=== PATIENT | male | born 1985 | race American Indian/Alaskan Native ===

== ENCOUNTER 2017-04-08 21:50 | Emergency (ER) | payer SELFPAY ==
[2017-04-08] MEDS ORDERED: NACL 0.9% 500 ML 500 ML IV ONE (23:10)
[2017-04-08] MEDS ORDERED: TYLENOL ONE (23:11)
[2017-04-08] MEDS ORDERED: TYLENOL PO ONE (23:11)
[2017-04-09 00:28] LABS: Basophils % (Auto) 0.7 % (0.0-1.8); Hemoglobin 15.4 gm/dl (11.8-15.2); Mean Corpuscular HGB Conc 33 % (32-34); Mean Corpuscular Hemoglobin 29 pg (28-32); Mean Corpuscular Volume 89 fl (84-94); Platelet Count 103 K/mm3 (140-440); Red Blood Count 5.27 M/mm3 (3.65-5.03); Red Cell Distribution Width 13.8 % (13.2-15.2); White Blood Count 3.7 K/mm3 (4.5-11.0)
[2017-04-09 00:40] LABS: INR 1.08 (0.87-1.13)
[2017-04-09 00:41] LABS: Alanine Aminotransferase 138 units/L (7-56); Albumin/Globulin Ratio 1.1 %; Alkaline Phosphatase 66 units/L (35-129); Blood Urea Nitrogen 9 mg/dL (9-20); Calcium 9.1 mg/dL (8.4-10.2); Carbon Dioxide 24 mmol/L (22-30); Chloride 97.8 mmol/L (98-107); Glucose 124 mg/dL (75-100); Potassium 3.6 mmol/L (3.6-5.0); Sodium 139 mmol/L (137-145); Total Protein 7.8 g/dL (6.3-8.2)
[2017-04-09 00:42] LABS: Anion Gap 21 mmol/L
[2017-04-09 01:11] LABS: Bilirubin,Urine NEG (Negative); Blood,Urine MOD (Negative); Ketones,Urine NEG (Negative); Leukocyte Esterase,Urine NEG (Negative); Mucus,Urine FEW /HPF; Nitrite,Urine NEG (Negative)
[2017-04-09] MEDS ORDERED: NACL 0.9% 500 ML 500 ML ONE (06:11)
[2017-04-09 06:52] VITALS: BP 138/90
--- NOTE | 2017-04-09 07:28 | Emergency Department Report ---
HPI - General Chief Complaint: Abdominal Pain Time Seen by Provider: 04/09/17 06:46 - HPI HPI: His is a 32 year-old male presents to the emergency department with complaint of intermittent fever and chills over the past 3 days. He tried some TheraFlu and [place] for his symptoms with some temporary relief of the fever but says that he developed some pain below his belly button after taking these medications. He denies any nausea, vomiting, cough, sore throat, back pain. He has a history of a hernia and wonders if this intermittent abdominal pain might be a recurrence of his hernia. However the patient denies any mass or protrusion of his abdomen. He does not have a primary care physician. No recent travel or sick contacts at home. He denies any problems with bowel or bladder. 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 He denies tobacco or illicit drug use or abuse. ED Past Medical Hx - Past Medical History Previous Medical History?: No - Surgical History Past Surgical History?: Yes Additional Surgical History: Hernia - Social History Smoking Status: Never Smoker Substance Use Type: Marijuana - Medications Home Medications: Home Medications Medication Instructions Recorded Confirmed Last Taken Type No Known Home Medications [No 04/09/17 04/09/17 Unknown History Reported Home Medications] ED Review of Systems ROS: Stated complaint: FEVER/ABD PAIN Other details as noted in HPI Comment: All other systems reviewed and negative Constitutional: chills, fever Eyes: denies: eye pain, eye discharge, vision change ENT: denies: ear pain, throat pain Respiratory: denies: cough, shortness of breath, wheezing Cardiovascular: denies: chest pain, palpitations Gastrointestinal: abdominal pain. denies: nausea, vomiting Genitourinary: denies: urgency, dysuria Musculoskeletal: denies: back pain, joint swelling, arthralgia Skin: denies: rash, lesions Neurological: denies: headache, weakness, paresthesias Physical Exam - Physical Exam Vital Signs: Vital Signs 04/08/17 04/09/17 04/09/17 23:05 02:39 06:00 Temperature 103.0 F H 99.7 F H 99.3 F Pulse Rate 96 H 74 85 Respiratory 18 18 18 Rate Blood Pressure 143/90 Blood Pressure 147/98 126/74 [Right] O2 Sat by Pulse 98 100 99 Oximetry 08/22/17 06:52 Temperature Pulse Rate 79 Respiratory 22 Rate Blood Pressure Blood Pressure 138/90 [Right] O2 Sat by Pulse 100 Oximetry Physical Exam: GENERAL: The patient is well-developed well-nourished. HENT: Normocephalic. Atraumatic. Patient has moist mucous membranes. Oropharynx is clear. EYES: Extraocular motions are intact. Pupils equal reactive to light bilaterally. NECK: Supple. Trachea is midline. CHEST/LUNGS: Clear to auscultation. There is no respiratory distress noted. HEART/CARDIOVASCULAR: Regular. There is no tachycardia. There is no gallop rub or murmur. ABDOMEN: Abdomen is soft. Unable to reproduce left lower quadrant abdominal pain to palpation. No guarding rebound tenderness. No palpable hernia. Patient has normal bowel sounds. There is no abdominal distention. SKIN: Skin is warm and dry. NEURO: The patient is awake, alert, and oriented. The patient is cooperative. The patient has no focal neurologic deficits. The patient has normal speech. MUSCULOSKELETAL: There is no tenderness or deformity. There is no limitation range of motion. There is no evidence of acute injury. ED Course Vital Signs 04/08/17 04/09/17 04/09/17 23:05 02:39 06:00 Temperature 103.0 F H 99.7 F H 99.3 F Pulse Rate 96 H 74 85 Respiratory 18 18 18 Rate Blood Pressure 143/90 Blood Pressure 147/98 126/74 [Right] O2 Sat by Pulse 98 100 99 Oximetry 04/09/17 06:52 Temperature Pulse Rate 79 Respiratory 22 Rate Blood Pressure Blood Pressure 138/90 [Right] O2 Sat by Pulse 100 Oximetry ED Medical Decision Making - Lab Data Result diagrams: 04/08/17 23:48 04/08/17 23:48 - EKG Data -: EKG Interpreted by Me EKG shows normal: sinus rhythm, axis, intervals, QRS complexes, ST-T waves (T- wave inversion to the lateral and inferior leads) Rate: normal - EKG Data When compared to previous EKG there are: previous EKG unavailable Interpretation: other (sinus rhythm, 92 bpm, T-wave inversions to the lateral and inferior leads) - Radiology Data Radiology results: image reviewed interpreted by me: Chest x-ray does not show any acute process. There are no pleural effusions, obvious pneumonia and there is no pneumothorax. - Medical Decision Making 32-year-old male presents the emergency department with a three-day history of intermittent fever and chills and a one-day history of some lower abdominal discomfort after taking TheraFlu and [place]. Patient's labs are mostly unremarkable except for elevated transaminase. He denies any significant alcohol abuse history. There is no leukocytosis, electrolyte abnormalities, renal insufficiency, glucose abnormalities. Normal lipase and bilirubin. He is negative for the rapid strep test and for influenza. He was given a dose of Tylenol and his fever has completely resolved. With the resolution of the fever the patient says he is feeling much better. He has a small amount of discomfort to the left lower quadrant of the abdomen but did not bring that up as a reason for his visit until I asked him about the triage note of abdominal pain. He thinks he might be developing a hernia as he previously had one there but there is no palpable hernia or any mass or protrusion that is felt. Vital signs stable throughout his ED course. The patient was given the opportunity to do a upper abdominal ultrasound to look into the transaminitis but the patient is not having any discomfort there and does not want the ultrasound done at this time. He was given multiple referrals for primary care. He will return to the ER with any worsening of symptoms or any acute distress. Due to the transaminitis he has been notified to avoid Tylenol for now and use ibuprofen as necessary for fever control. - Differential Diagnosis viral syndrome, diverticulitis, hernia, strep pharyngitis, influenza Critical Care Time: No Critical care attestation.: If time is entered above; I have spent that time in minutes in the direct care of this critically ill patient, excluding procedure time. ED Disposition Clinical Impression: Elevated LFTs Fever Qualifiers: Fever type: unspecified Qualified Code(s): R50.9 - Fever, unspecified Abdominal pain Qualifiers: Abdominal location: unspecified location Qualified Code(s): R10.9 - Unspecified abdominal pain Disposition: TO HOME OR SELFCARE Is pt being admited?: No Condition: Stable Instructions: Fever in Adults (ED), Abdominal Pain (ED) Additional Instructions: Please follow up with a primary care physician in the next few days. I have given you a referral for a local bonderizer operator, Dr. Barrett, to follow up regarding your elevated liver enzymes from your blood work. You should treat her fever with ibuprofen every 6 hours, using weight-based dosing. I would avoid any Tylenol use or any products that have Tylenol until you're able to follow up regarding the elevated liver enzymes. Return to the emergency Department with any worsening of your symptoms or any acute distress. Referrals: PRIMARY CARE, [Primary Care Provider] - 3-5 Days NORM BARRETT MD [Staff Physician] - 3-5 Days [facility] [Outside] - 3-5 Days [facility] [Outside] - 3-[address] [facility] [Outside] - 3-5 Days Forms: Work/School Release Form(ED) Time of Disposition: 07:29
--- NOTE | 2017-04-09 07:51 | XRay Report ---
Single view chest: History: Possible sepsis. Findings: Normal cardiac size. Trachea is midline. Suspected nodule left hilum. Normal CP angles. No consolidation. Impression: Suspected nodule/mass left hilum. Recommend CT scan.
== END 2017-04-09 07:45 | disposition home or self-care (01) ==
LOC: ED 21:50
DX: R10.30 Lower abdominal pain, unspecified (principal); R50.9 Fever, unspecified; F12.10 Cannabis abuse, uncomplicated
CPT/HCPCS: 36415; 71010; 80053; 81001; 82140; 82805; 85025; 85610; 87040; 87086; 87116; 87400; 87430; 93005; 93010; 99285; J7040